=== PATIENT | male | born 1970 | race Two or more races ===

== ENCOUNTER 2021-03-23 23:21 | Emergency (ER) | payer OTHER ==
[~2021-03-23] VITALS: Ht 167.6 cm; Wt 102.1 kg
[~2021-03-23 23:21] MED LIST: DIOVAN160 M1; DIOVAN160 M1 PO; GILTUSS LIQUID237 M1 PO; LEVAQUIN500 MG PO; PROVENTIL0.5 ML/2.5 IH; PROVENTIL3 ML/2.5 M IH; XANAX2 MG PO
[2021-03-23] MEDS ORDERED: HYDROCHLOROTHIA25 MG (23:40)
[2021-03-23] MEDS ORDERED: LIPITOR20 MG (23:41)
[2021-03-23] MEDS ORDERED: NORVASC5 MG (23:41)
[2021-03-23] MEDS ORDERED: SINGULAIR10 MG (23:41)
[2021-03-24] MEDS ORDERED: PHAZYME250 MG PO (06:53)
[2021-03-24] MEDS ORDERED: PROTONIX40 MG PO (06:53)
[2021-03-24] MEDS ORDERED: PEPCID40 MG PO (06:53)
== END 2021-03-24 07:40 ==
LOC: ER 23:21
DX: K21.9 Gastro-esophageal reflux disease without esophagitis (principal); I10 Essential (primary) hypertension